=== PATIENT | female | born 1990 | race Asian ===

== ENCOUNTER 2017-08-27 23:25 | Emergency (ER) | payer OTHER, MEDICAID ==
[~2017-08-27] VITALS: Ht 167.6 cm; Wt 99.8 kg
[2017-08-27 23:36] VITALS: BP 122/78
[2017-08-27] MEDS ORDERED: Lidocaine 1% 10mg/ml/Epi 0.005mg/ml 30ml vial INJ ONE (23:45)
[2017-08-27] MEDS ORDERED: KEFLEX500 MG ORAL (23:46)
[2017-08-27] MEDS ORDERED: BACTRIM DS TAB1 EAC1 ORAL (23:46)
[2017-08-28 00:19] VITALS: BP 122/78
--- NOTE | 2017-08-28 00:35 | Emergency Room Report ---
History of Present Illness General Chief Complaint: Skin Rash/Abscess Source: Patient Present Illness HPI 27-year-old female p/w redness/swelling/bump to upper buttocks for 5 days. pain to the area, "popped" today with bloody drainage. No fever or chills. + hx of abscesses in the past. Denies history of diabetes Allergies: Coded Allergies: TETRACYCLINE (Verified Allergy, Unknown, 08/27/17) Patient History Past Medical History: see triage record Past Surgical History: none Pertinent Family History: none Last Menstrual Period: none Now: No Reviewed Nursing Documentation: PMH: Agreed, PSxH: Agreed Review of Systems All Other Systems: negative except mentioned in HPI Physical Exam Vital Signs Date Time Temp Pulse Resp B/P (MAP) Pulse Ox O2 Delivery O2 Flow Rate FiO2 08/27/17 23:29 98.7 112 18 122/78 99 Room Air 98.8 Sp02 EP Interpretation: reviewed, normal General Appearance: alert, GCS 15, non-toxic, mild distress Head: normocephalic, atraumatic Eyes: bilateral eye normal inspection, bilateral eye PERRL, bilateral eye EOMI ENT: normal ENT inspection, normal pharynx, normal voice, moist mucus membranes Neck: normal inspection, full range of motion, supple Respiratory: normal inspection, lungs clear, normal breath sounds, no respiratory distress, no retraction, no wheezing, speaking full sentences, chest symmetrical Cardiovascular #1: normal inspection, regular rate, rhythm, no edema, normal capillary refill Cardiovascular #2: 2+ radial (R), 2+ radial (L) Gastrointestinal: normal inspection, non tender, soft, non-distended, no guarding Rectal: other - Small 2 x 2 centimeter abscess already draining bloody purulent fluid, tender to palpation, induration surrounding about 3 x 3 cm located at gluteal fold Musculoskeletal: normal inspection, back normal, normal range of motion, non- tender Neurologic: normal inspection, alert, oriented x3, responsive, motor strength/ tone normal, sensory intact, normal gait, speech normal Psychiatric: normal inspection, judgement/insight normal, memory normal Skin: normal inspection, normal color, no rash, warm/dry, well hydrated, normal turgor Procedures Incision and Drainage Incision and Drainage : Consent: Verbal Blade Size: 11 I & D Procedure: betadine prep, sterile drapes applied, sterile dressing applied, gauze wick placed Wound Location: other - buttock Wound's Depth, Shape: superficial Wound Length (cm): 2 Wound Explored: clean Irrigated w/ Saline (ccs): 8 Anesthesia: 1% Lidocaine Patient Tolerated: Well Complications: None Medical Decision Making Diagnostic Impression: Primary Impression: Abscess ER Course 27-year-old female with abscess DDX: abscess Plan: Incision and drainage, DC home with ABX ER course: Incision and drainage performed with 2 cc purulent drainage obtained. Packing placed. No complications Disposition: Patient discharged to home with keflex and Bactrim Patient instructed to follow up in ED or primary care doctor's office to wound recheck in 48 hours without fail. Patient cautioned to return to ED if there is rapid spread of rash, high fever or chills. Patient verbalized understanding and agrees with plan. Please note that this Emergency Department Report was dictated using [employer] assistant technology software, occasionally this can lead to erroneous entry secondary to interpretation by the dictation equipment. Last Vital Signs Date Time Temp Pulse Resp B/P (MAP) Pulse Ox O2 Delivery O2 Flow Rate FiO2 08/28/17 00:19 98.8 112 18 122/78 99 Room Air 98.8 Disposition: HOME, SELF-CARE Condition: Improved Scripts Trimethoprim/Sulfamethoxazole 160/800* (BACTRIM DS TABLET*) 1 Each Tablet 1 TAB ORAL Q12H for 7 Days, #14 TAB 0 Refills Prov: Gail Warner M.D. 08/27/17 Cephalexin* (KEFLEX*) 500 Mg Capsule 500 MG ORAL Q6H for 7 Days, #28 CAP 0 Refills Prov: Gail Warner M.D. 08/27/17 Referrals: NOT CHOSEN IPA/,REFERRING (PCP) Patient Instructions: Abscess Additional Instructions: PLEASE SEE YOUR DOCTOR IN 2-3 DAYS FOR WOUND RECHECK Gail Warner M.D. Aug 28, 2017 00:35
== END 2017-08-28 00:20 | disposition home or self-care (01) ==
LOC: EMR 23:47
DX: L02.31 Cutaneous abscess of buttock (principal); Z88.1 Allergy status to other antibiotic agents
CPT/HCPCS: 10060; 99283